=== PATIENT | female | born 1955 | race Caucasian/White ===

== ENCOUNTER 2022-03-18 08:15 | Day surgery (SDC) | payer MEDICARE ==
[~2022-03-18] VITALS: Ht 165.1 cm; Wt 57.2 kg
[~2022-03-18 08:15] MED LIST: BSS IRRIG/VANCO(10MG)/TOBRA(5MG)/EPINEPH(1:1000-0.5CC)500ML BAG-ORONLY IR ONE; CEFUROXIME 1MG/0.1ML INTRACAMERAL INJ As Ordered ONE; CYCLOPENTOLATE 1% OPHTH SOLN 2 ML BTL OD SCH; LIDOCAINE 1% SDV 5ML VIAL As Ordered ONE; LIDOCAINE 3.5 % 1ML OPHTH TOPICAL GEL OU ONE; OFLOXACIN 0.3 % (OCUFLOX) OPTH SOL 5ML OD ONE; PHENYLEPHRINE 2.5% OPHTH SOL 2ML OD SCH; PHENYLEPHRINE HCL 10 % OPHTH. SOL 5ML OD PRN; SYNT50TA PO; TROPICAMIDE 1% OPHTH SOLN 2ML OD SCH
[2022-03-18] MEDS ORDERED: fentaNYL 100 MCG/2 ML INJECTION As Ordered ONE (10:08)
[2022-03-18] MEDS ORDERED: MIDAZOLAM INJ 2MG/2ML VIAL (J2250 PER 1MG) As Ordered ONE (10:08)
[2022-03-18 10:19] VITALS: BP 117/69
== END 2022-03-18 10:36 | disposition home or self-care (01) ==
LOC: M SDC 08:15 → EDUNIT# 10:00 → M SDC 10:36
PROVIDERS: ATTEND Ophthalmology
DX: H25.11 Age-related nuclear cataract, right eye (principal); F32.A Depression, unspecified; Z79.890 Hormone replacement therapy
CPT/HCPCS: 66984; J0697; J2250; J3010; V2632